=== PATIENT | female | born 1945 | race Caucasian/White ===

== ENCOUNTER → 2016-07-10 | Outpatient (CLI) | payer OTHER, MEDICARE | LOC: FIMAGING 12:48 | DX: Z12.31 Encounter for screening mammogram for malignant neoplasm of breast (principal) | CPT/HCPCS: G0202 ==

== ENCOUNTER → 2016-09-26 | Outpatient (CLI) | payer OTHER, MEDICARE | LOC: FIMAGING 14:14 | PROVIDERS: ATTEND Internal Medicine | DX: Z13.820 Encounter for screening for osteoporosis (principal); E03.9 Hypothyroidism, unspecified; E78.5 Hyperlipidemia, unspecified; I48.91 Unspecified atrial fibrillation ==

== ENCOUNTER → 2017-06-18 | Outpatient (CLI) | payer OTHER, MEDICARE | LOC: BHFA 10:30 | PROVIDERS: ATTEND Internal Medicine Cardiovascular Disease | DX: I48.91 Unspecified atrial fibrillation (principal) ==

== ENCOUNTER → 2017-07-26 | Outpatient (CLI) | payer OTHER, MEDICARE | LOC: FIMAGING 13:26 | PROVIDERS: ATTEND Internal Medicine | DX: Z12.31 Encounter for screening mammogram for malignant neoplasm of breast (principal); Z85.43 Personal history of malignant neoplasm of ovary ==

== ENCOUNTER → 2018-09-04 | Outpatient (CLI) | payer OTHER, MEDICARE | LOC: FIMAGING 15:23 | PROVIDERS: ATTEND Internal Medicine | DX: Z12.31 Encounter for screening mammogram for malignant neoplasm of breast (principal) ==

== ENCOUNTER → 2018-09-20 | Outpatient (CLI) | payer OTHER, MEDICARE | LOC: BHFA 09:30 | PROVIDERS: ATTEND Internal Medicine Cardiovascular Disease | DX: I48.91 Unspecified atrial fibrillation (principal); R07.89 Other chest pain | CPT/HCPCS: 78452; 93017; A9500; J2785 ==

== ENCOUNTER → 2018-10-04 | Outpatient (CLI) | payer OTHER, MEDICARE | LOC: FCP 14:10 ==